=== PATIENT | male | born 1980 | race Hispanic/Latino ===

== ENCOUNTER 2016-10-10 17:48 | Emergency (ER) | payer BC ==
[2016-10-10 17:52] VITALS: BP 155/86; PULSE 92; RESP 16; TEMP 98.3; O2SAT 98
--- NOTE | 2016-10-10 18:20 | ED PDOC ---
Upper Extremity Pain/Injury Time Seen by Provider: 10/10/16 17:55 Chief Complaint (Nursing): Upper Extremity Problem/Injury Chief Complaint (Provider): finger infection History Per: Patient Onset/Duration Of Symptoms: Days (x4) Current Symptoms Are (Timing): Still Present Additional Complaint(s): Rajat Lin is a 36 year old right hand dominant male who presents to the emergency department complaining of right hand 5th digit pain associated with swelling and redness that started 4 days ago. Patient states he is right hand dominant and denies any trauma, fever or chills. Patient reports he does have a habit of biting his nails. PMD: None provided Past Medical History Reviewed: Historical Data, Nursing Documentation, Vital Signs Vital Signs: Last Vital Signs Temp 98.3 F 10/10/16 17:50 Pulse 92 H 10/10/16 17:50 Resp 16 10/10/16 17:50 BP 155/86 H 10/10/16 17:50 Pulse Ox 98 10/10/16 17:50 - Medical History PMH: No Chronic Diseases - Family History Family History: States: No Known Family Hx - Living Arrangements Living Arrangements: With Family - Social History Current smoker - smoking cessation education provided: Yes (chew tobacco) Alcohol: Social Drugs: Denies - Immunization History Hx Tetanus Toxoid Vaccination: Yes - Home Medications Home Medications: Ambulatory Orders Medication Instructions Recorded Griseofulvin Microsize [Grifulvin 500 mg PO BID #120 tab 10/02/14 V] Amoxicillin/Clavulanate [Augmentin 1 tab PO BID #14 tab 10/10/16 875 MG-125 MG] Sulfamethoxazole/Trimethoprim 1 tab PO BID #14 tab 10/10/16 [Bactrim DS 800 mg-160 mg] - Allergies Allergies/Adverse Reactions: Allergies Allergy/AdvReac Type Severity Reaction Status Date / Time No Known Allergies Allergy Verified 10/10/16 18:16 Review of Systems ROS Statement: Except As Marked, All Systems Reviewed And Found Negative Constitutional: Negative for: Fever, Chills Musculoskeletal: Positive for: Other (pain and redness right 5th digit, denies any trauma ) Physical Exam - Reviewed Nursing Documentation Reviewed: Yes Vital Signs Reviewed: Yes - Physical Exam Appears: Positive for: Well, Non-toxic, No Acute Distress Skin: Positive for: Normal Color. Negative for: Rash Eye Exam: Positive for: Normal appearance Extremity: Positive for: Normal ROM (Full ROM on infected digit), Other ( nonfluctuant paronychia noted to eponychial fold of right 5th digit, no active drainage or bleeding, localized swelling and erythema noted, fingernail intact with no discoloration) Neurologic/Psych: Positive for: Alert, Oriented - ECG O2 Sat by Pulse Oximetry: 98 (RA) Pulse Ox Interpretation: Normal Medical Decision Making Medical Decision Making: Initial Impression: 36 y/o male with paronychia on left 5th digit. Initial Plan: Nonfluctuant paronychia noted, no incision and drainage indicated at this time. Patient given prescriptions for Bactrim and Augmentin and he was instructed to soak affected area in warm water and Epsom salts. Patient was advised to have him reevaluated in 2-3 days. He is aware he can return to ED if acutely worse at any time. Scribe Attestation: Documented by Deacon Escalante, acting as a scribe for Aline QUEEN. Provider Scribe Attestation: All medical record entries made by the Scribe were at my direction and personally dictated by me. I have reviewed the chart and agree that the record accurately reflects my personal performance of the history, physical exam, medical decision making, and the department course for this patient. I have also personally directed, reviewed, and agree with the discharge instructions and disposition. Disposition - Clinical Impression Clinical Impression: Paronychia - Patient ED Disposition Is Patient to be Admitted: No Counseled Patient/Family Regarding: Diagnosis, Need For Followup, Rx Given - Disposition Referrals: [facility] [Outside] Samira Shen MD [Staff Provider] - Disposition: Routine/Home Disposition Time: 18:52 Condition: STABLE Additional Instructions: Apply warm compresses with epsom salts to affected area. Over the counter advil for pain and swelling. Take antibiotics as directed. Wound re-check in 2 -3 days. Return any time if acutely worse. Prescriptions: Amoxicillin/Clavulanate [Augmentin 875 MG-125 MG] 1 tab PO BID #14 tab Sulfamethoxazole/Trimethoprim [Bactrim DS 800 mg-160 mg] 1 tab PO BID #14 tab Instructions: Paronychia (ED) Forms: [employer] (E[place]rean)
== END 2016-10-10 18:37 | disposition home or self-care (01) ==
LOC: H.ER 17:48
DX: L03.011 Cellulitis of right finger (principal)